=== PATIENT | male | born 1950 | race Caucasian/White ===

== ENCOUNTER 2018-10-29 04:27 | Emergency (ER) | payer OTHER ==
[~2018-10-29] VITALS: Ht 170.2 cm; Wt 68.0 kg
[~2018-10-29 04:27] MED LIST: ALBU3IS INH; ALBU90OI61 INH; ALPR.5 PO; AMOX500 PO; AZIT500 PO; Ativan0.5 MG PO; COLCHICINE0.6 MG PO; Crutch1 EACH MISC; DOCU100 PO; HYDACE10B PO; METO50 PO; PRED10 PO; Veetids 500500 MG PO; Ventolin/Prove6.7 GM INH
== END 2018-10-29 05:42 | disposition home or self-care (01) ==
LOC: ER 04:27
DX: J44.9 Chronic obstructive pulmonary disease, unspecified (principal); Z79.899 Other long term (current) drug therapy; I10 Essential (primary) hypertension
CPT/HCPCS: 94640; 99283-25

== ENCOUNTER 2019-01-06 20:58 | Day surgery (SDC) | payer OTHER ==
[~2019-01-06] VITALS: Ht 175.3 cm; Wt 63.5 kg
[2019-01-06] MEDS ORDERED: IBUP600 PO (21:30)
[2019-01-06] MEDS ORDERED: Pepcid20 MG PO (23:10)
--- NOTE | 2019-01-06 23:42 | NUR ---
TO ER TO GET PATIENT THEN BROUGTH PATIENT TO [facility] AND ADMISSION STARTED
--- NOTE | 2019-01-06 23:52 | NUR ---
01/06/19 2352 Amadou Govea PATIENT DETERMINED TO BE ASA APPROPRIATE FOR PROPOFOL SEDATION PRIOR TO START OF PROCEDURE BY DR. Estelle Fajardo Placed3-LEAD EKG REVIEWED WITH PHYSICIAN PRIOR TO START OF PROCEDURE.Patient to ENDO 1History, Chart, Medications and Allergies reviewed before start of procedure.LUNGS CLEAR T/O TO AUSCULTATION.MONITOR INTACT WITH CONTINUOUS PULSE OXIMETRY AND INTERMITTENT BP.O2 VIA N/C INTACT THROUGHOUT SEDATION/PROCEDURE.
--- NOTE | 2019-01-07 01:42 | NUR ---
MULTIPLE CALLS MADE TO ER TO TALK WITH TIAN ANDERSON WHO HAD PATIENT PRIOR TO PROCEDURE. SHE STATES SHE WILL WORK ON GETTING HIM A RIDE HOME ONCE HE IS AWAKE ENOUGH TO BE DOWN IN THE ER LOBBY. AFTER SOME TIME PATIENT AWAKE AND CONVERSING GIVING STAFF NUMBERS TO CALL FOR RIDE NUMBERS SHARED WITH JUSTIN OVERTON. PATIENT DRESSED AND TAKEN TO ER LOBBY AFTER GOING OVER DISCHARGE INSTRUCTIONS AND REMOVING IV.
== END 2019-01-07 01:42 | disposition home or self-care (01) ==
LOC: ER 20:58 → ORSCMMR 23:38
PROVIDERS: Student in an Organized Health Care Education/Training Program
PROC: 0DB98ZX Excision of Duodenum, Via Natural or Artificial Opening Endoscopic, Diagnostic (ICD-10-PCS; principal; 2019-01-06 23:45)
DX: R13.14 Dysphagia, pharyngoesophageal phase (principal); K21.9 Gastro-esophageal reflux disease without esophagitis; K29.80 Duodenitis without bleeding; K22.2 Esophageal obstruction; T18.128A Food in esophagus causing other injury, initial encounter; J44.9 Chronic obstructive pulmonary disease, unspecified; F41.9 Anxiety disorder, unspecified; Z79.899 Other long term (current) drug therapy
CPT/HCPCS: 36415; 88305; 88312; 96374; 99284-25; J1610; J2060; J2704; J7120

== ENCOUNTER 2019-03-15 01:00 | Emergency (ER) | payer OTHER ==
[~2019-03-15 01:00] MED LIST changes: +IBUP600 PO; +Pepcid20 MG PO
[2019-03-15 13:15] LABS: Calcium, Ionized (POC) 1.16 mmol/L (1.10-1.46); Chloride (POC) 103 mmol/L (98-108); Creatinine (POC) 1.3 mg/dL (0.8-1.3); Glucose (ISTAT POC) 110 mg/dL (70-99); Hemoglobin (POC) 11.6 g/dL (13.5-17.5); Potassium (POC) 3.2 mmol/L (3.5-5.5); Sodium (POC) 141 mmol/L (135-148); Total CO2 (POC) 25 mmol/L (21-32)
== END 2019-03-15 10:45 | disposition home or self-care (01) ==
LOC: ER 01:00
PROVIDERS: Emergency Medicine
DX: F10.129 Alcohol abuse with intoxication, unspecified (principal)
CPT/HCPCS: 80047; 85014; 96360; 99284; J7030

== ENCOUNTER 2019-05-21 22:13 | Emergency (ER) | payer OTHER ==
[~2019-05-21] VITALS: Ht 175.3 cm; Wt 64.4 kg
== END 2019-05-22 01:32 | disposition home or self-care (01) ==
LOC: ER 22:13
DX: S00.31XA Abrasion of nose, initial encounter (principal); S60.512A Abrasion of left hand, initial encounter; F10.129 Alcohol abuse with intoxication, unspecified; J44.9 Chronic obstructive pulmonary disease, unspecified; F41.9 Anxiety disorder, unspecified; Y04.8XXA Assault by other bodily force, initial encounter; Y09 Assault by unspecified means
CPT/HCPCS: 99283

== ENCOUNTER 2019-09-17 18:21 | Inpatient (IN) | payer OTHER ==
[~2019-09-17] VITALS: Ht 170.2 cm; Wt 66.5 kg
[2019-09-17 19:32] LABS: BASOPHILS ABSOLUTE AUTO 0.02 K/mm3 (0.00-0.23); BASOPHILS PERCENT AUTO 0 % (0-2); EOSINOPHILS PERCENT AUTO 0 % (0-6); Hematocrit 38.2 % (37.0-53.0); IMMATURE GRAN ABSOLUTE AUTO 0.08 K/mm3 (0.00-0.10); IMMATURE GRAN PERCENT AUTO 1 % (0-1); LYMPHOCYTES PERCENT AUTO 6 % (21-46); MONOCYTES ABSOLUTE AUTO 1.85 K/mm3 (0.16-1.47); MONOCYTES PERCENT AUTO 14 % (4-13); Mean Corpuscular Volume 85 fL (80-100); Mean Platelet Volume 8.6 fL (9.1-12.4); NEUTROPHILS ABSOLUTE AUTO 10.42 K/mm3 (1.96-9.15); NEUTROPHILS PERCENT AUTO 79 % (41-73); Platelet Count 387 K/mm3 (150-400); RDW Coefficient Variation 11.9 % (11.7-14.2); RDW Standard Deviation 36.7 fL (35.1-46.3); Red Blood Cell Count 4.49 M/mm3 (4.30-5.90); White Blood Cell Count 13.17 K/mm3 (4.00-11.30)
[2019-09-17 19:49] LABS: Alanine Aminotransfer (ALT/SGP 24 U/L (12-78); Albumin, Blood 3.4 g/dL (3.4-5.0); Albumin/Globulin Ratio 0.8 (0.8-1.8); Alk Phos 176 U/L (50-136); Anion Gap 10 mmol/L (6-16); Aspartate Aminotrans (AST/SGOT 22 U/L (12-37); Blood Urea Nitrogen 6 mg/dL (8-24); CO2, Blood 26 mmol/L (21-32); Calcium, Blood 8.8 mg/dL (8.5-10.1); Chloride, Blood 96 mmol/L (98-108); Creatinine, Blood 0.86 mg/dL (0.60-1.20); Globulin, Blood 4.4 g/dL (2.2-4.0); Glomerular Filtration Rate >60 (60-); Glucose, Blood 160 mg/dL (70-99); Potassium, Blood 2.6 mmol/L (3.5-5.5); Sodium, Blood 132 mmol/L (136-145); Total Protein, Blood 7.8 g/dL (6.4-8.2)
--- NOTE | 2019-09-18 00:03 | NUR ---
PT ARRIVED VIA STRETCHED AND SCOOTED SELF OVER TO BED; A&O; C/O L FOOT PAIN; PT STATES HE USED TO RECE[facility], BUT HAS NOT FOLLOWED UP FOR A YEAR; STATES HE USED TO TAKE BP MEDICATION; PT STATES HE HAS HX OF ANXIETY; PROVIDER NOTIFIED OF LACTIC OF 2.8; PT RECEIVED 1L NS IN ER; 1L NS W/ KCL TO BE GIVEN; PT HAS TEMP OF 100.0; O2 SATS >93 ON RA; SINUS TACH NOTED ON TELE W/ HR 105-118; PT STATES HE CANNOT STAND AND PREFERS URINAL IN BED; STATES NO BM FOR A FEW DAYS; SNACKS BROUGHT TO PT; FENTANYL FOR 9 OF 10 PAIN PER EMAR; 650 MG TYLENOL ADMINISTERED FOR FEVER; EDUCATED ON USE OF CALL LIGHT; ORIENTED TO UNIT/ROOM; PT CURRENTLY SLEEPING; CALL LIGHT IN REACH; BED IN LOWEST POSITION;
[2019-09-18 01:39] LABS: Anion Gap 10 mmol/L (6-16); Blood Urea Nitrogen 6 mg/dL (8-24); Bun/Creatinine Ratio 6.4 (12.0-20.0); CO2, Blood 26 mmol/L (21-32); Calcium, Blood 8.1 mg/dL (8.5-10.1); Chloride, Blood 100 mmol/L (98-108); Creatinine, Blood 0.94 mg/dL (0.60-1.20); Glomerular Filtration Rate >60 (60-); Glucose, Blood 158 mg/dL (70-99); Potassium, Blood 2.8 mmol/L (3.5-5.5); Sodium, Blood 136 mmol/L (136-145)
[2019-09-18 01:42] LABS: BASOPHILS ABSOLUTE AUTO 0.05 K/mm3 (0.00-0.23); BASOPHILS PERCENT AUTO 1 % (0-2); EOSINOPHILS ABSOLUTE AUTO 0.01 K/mm3 (0.00-0.68); EOSINOPHILS PERCENT AUTO 0 % (0-6); Hematocrit 34.1 % (37.0-53.0); Hemoglobin 11.4 g/dL (13.5-17.5); IMMATURE GRAN ABSOLUTE AUTO 0.08 K/mm3 (0.00-0.10); IMMATURE GRAN PERCENT AUTO 1 % (0-1); LYMPHOCYTES ABSOLUTE AUTO 1.21 K/mm3 (0.84-5.20); LYMPHOCYTES PERCENT AUTO 12 % (21-46); MONOCYTES ABSOLUTE AUTO 1.71 K/mm3 (0.16-1.47); MONOCYTES PERCENT AUTO 16 % (4-13); Mean Corpuscular HGB 28.7 pg (26.0-34.0); Mean Corpuscular HGB Conc 33.4 g/dL (31.5-36.5); Mean Corpuscular Volume 86 fL (80-100); Mean Platelet Volume 8.7 fL (9.1-12.4); NEUTROPHILS ABSOLUTE AUTO 7.43 K/mm3 (1.96-9.15); NEUTROPHILS PERCENT AUTO 71 % (41-73); Platelet Count 327 K/mm3 (150-400); RDW Standard Deviation 37.9 fL (35.1-46.3); Red Blood Cell Count 3.97 M/mm3 (4.30-5.90); White Blood Cell Count 10.49 K/mm3 (4.00-11.30)
--- NOTE | 2019-09-18 02:02 | NUR ---
UPDATE PROVIDER NOTIFIED OF LACTIC ACID 3.6; NEW ORDER GIVEN FOR 1L LR 500ML/HR X1, THEN RESUME NS W/KCL
--- NOTE | 2019-09-18 07:00 | NUR ---
ASSUMED CARE AT THIS TIME. RESTINGIN BED SUPINE. A/A/OX4. KCL INFUSING AT THIS TIME. REDNESS AND WARMTH TO LEFT FOOT. PEDAL PULSE PALPABLE. REDNESS LINE MARKED BY ED PRIOR TO ADMIT. DOES NOT EXTEND PAST LINE THIS AM. WILL CONTINUE TO MONITOR.
[2019-09-18 11:28] LABS: U Amphetamine Screen DETECTED; U Barbituate Screen Not Detected; U Benzodiazapine Screen Not Detected; U Buprenorphine Screen Not Detected; U Cannabinoids Screen Not Detected; U Cocaine Screen Not Detected; U Methadone Screen Not Detected; U Methamphetamine Screen DETECTED; U Opiates Screen Not Detected; U Oxycodone Screen Not Detected; U Phencyclidine Screen Not Detected; U Propoxyphene Screen Not Detected
--- NOTE | 2019-09-18 12:00 | NUR ---
REPORT TO TIAN BRANCH TO ASSUME CARE ON MEDICAL FLOOR.
--- NOTE | 2019-09-18 13:06 | NUR ---
PT TRANSFERED. PT TRANSFERED AND RESTING IN BED. ORIENTED TO ROOM. CALL LIGHT IN REACH.
--- NOTE | 2019-09-18 17:04 | NUR ---
SHIFT SUMMARY PT NAPPED MOSTLY SINCE TRANSFERED. NO ACUTE CHANGES IN ASSESSMENT AT THIS TIME. VSS. PT SEEN BY ORTHO THIS SHIFT. NO NEW ORDERS. WILL CONTINUE TO MONITOR UNTIL TURNOVER IS COMPLETE.
--- NOTE | 2019-09-19 04:27 | NUR ---
SUMMARY PT HAD SOME DISCOMFORT AND TX PER EMAR W/ RELIEF. PT HAS SLEPT T/O SHIFT. PT CURRENTLY SLEEPING AND BREATHING EASY. CALL LIGHT IN REACH.
[2019-09-19 04:35] LABS: Anion Gap 6 mmol/L (6-16); Blood Urea Nitrogen 14 mg/dL (8-24); Bun/Creatinine Ratio 14.9 (12.0-20.0); CO2, Blood 25 mmol/L (21-32); Calcium, Blood 7.9 mg/dL (8.5-10.1); Chloride, Blood 107 mmol/L (98-108); Creatinine, Blood 0.94 mg/dL (0.60-1.20); Glomerular Filtration Rate >60 (60-); Glucose, Blood 86 mg/dL (70-99); Sodium, Blood 138 mmol/L (136-145)
[2019-09-19 09:40] LABS: International Normalized Ratio 1.04; Prothrombin Time Results 11.1 Sec (9.7-11.5)
[2019-09-19 15:23] LABS: WBC Count, Synovial Fluid 825 /mm3 (0-180)
[2019-09-19 15:32] LABS: Body Fluid Crystals NEG (NEGATIVE)
[2019-09-19 15:49] LABS: Lymphs, Synovial Fluid 3 % (0-15); Monocytes/Macrophages, Synovia 4 % (0-65); Neutrophils, Synovial Fluid 93 % (0-24)
[2019-09-19 16:19] LABS: Appearance, Synovial Fluid Hazy (Clear); Color, Synovial Fluid Colorless (None-P Yel); RBC Count, Synovial Fluid 538 /mm3 (0-0)
--- NOTE | 2019-09-19 17:34 | NUR ---
SHIFT SUMMARY PT HAD ECHO, CAROTID DUPLEX, AND MRI OF HEAD COMPLETED THIS SHIFT. PT NAPPED OFF AND ON THROUGHOUT SHIFT. ARACELY CALLED PER REQUEST TO SEE PT TODAY. NO NEUROLOGIC PROBLEMS T/O SHIFT. PT IND IN ROOM. NO ACUTE CHANGES IN ASSESSMENT AT THIS TIME. VSS. WILL CONTINUE TO MONITOR UNTIL TURNOVER IS COMPLETE.
--- NOTE | 2019-09-19 17:37 | NUR ---
SHIFT SUMMARY PT HAD ASPIRATION OF L ANKLE JOINT COMPLETED THIS SHIFT. NO OTHER ACUTE CHANGES IN ASSESSMENT AT THIS TIME. PT MEDICATED FOR PAIN ONCE THIS SHIFT. VSS. WILL CONTINUE TO MONITOR UNTIL TURNOVER IS COMPLETE.
[2019-09-20 04:34] LABS: BASOPHILS ABSOLUTE AUTO 0.03 K/mm3 (0.00-0.23); BASOPHILS PERCENT AUTO 1 % (0-2); EOSINOPHILS ABSOLUTE AUTO 0.24 K/mm3 (0.00-0.68); EOSINOPHILS PERCENT AUTO 4 % (0-6); Hematocrit 34.5 % (37.0-53.0); Hemoglobin 11.1 g/dL (13.5-17.5); IMMATURE GRAN ABSOLUTE AUTO 0.03 K/mm3 (0.00-0.10); IMMATURE GRAN PERCENT AUTO 1 % (0-1); LYMPHOCYTES ABSOLUTE AUTO 1.05 K/mm3 (0.84-5.20); LYMPHOCYTES PERCENT AUTO 18 % (21-46); MONOCYTES ABSOLUTE AUTO 0.56 K/mm3 (0.16-1.47); MONOCYTES PERCENT AUTO 10 % (4-13); Mean Corpuscular HGB 28.1 pg (26.0-34.0); Mean Corpuscular HGB Conc 32.2 g/dL (31.5-36.5); Mean Corpuscular Volume 87 fL (80-100); Mean Platelet Volume 8.8 fL (9.1-12.4); NEUTROPHILS ABSOLUTE AUTO 3.91 K/mm3 (1.96-9.15); NEUTROPHILS PERCENT AUTO 67 % (41-73); Platelet Count 333 K/mm3 (150-400); RDW Coefficient Variation 11.9 % (11.7-14.2); RDW Standard Deviation 38.3 fL (35.1-46.3); Red Blood Cell Count 3.95 M/mm3 (4.30-5.90); White Blood Cell Count 5.82 K/mm3 (4.00-11.30)
[2019-09-20 04:57] LABS: Anion Gap 6 mmol/L (6-16); Blood Urea Nitrogen 17 mg/dL (8-24); Bun/Creatinine Ratio 16.8 (12.0-20.0); CO2, Blood 27 mmol/L (21-32); Calcium, Blood 8.7 mg/dL (8.5-10.1); Chloride, Blood 104 mmol/L (98-108); Creatinine, Blood 1.01 mg/dL (0.60-1.20); Glomerular Filtration Rate >60 (60-); Glucose, Blood 95 mg/dL (70-99); Potassium, Blood 4.2 mmol/L (3.5-5.5); Sodium, Blood 137 mmol/L (136-145)
--- NOTE | 2019-09-20 05:07 | NUR ---
SHIFT SUMMARY PT HAS HAD NO ACUTE CHANGES THIS SHIFT, MEDICATED 1X FOR PAIN, NO OTHER C/O ANY KIND, CIWA'S 1-2 THIS SHIFT, PT SLEPT T/O NIGHT, SLEEPING AT THIS TIME, CALL LIGHT IN REACH, WILL CONT TO MONITOR UNTIL REPORT GIVEN TO DAY RN.
--- NOTE | 2019-09-20 12:31 | NUR ---
Patient is lying in bed and alert. Patient shares about his medical issues, about his homelessness, about blowing all his inheritance and his thoughts on God and reliegion. Patient explains about his fears surrounding the Covid-19 pandemic and his concerns for his own life. I listen empathically, normalize patient experience and provide spiritual guidance and prayer. Patient responds well and displays evidence of improved peace. I will continue to remain available to patient and family.
--- NOTE | 2019-09-20 18:39 | NUR ---
SHIFT SUMMARY PT INDEPENDENT IN ROOM. MEDICATED FOR L FOOT/ANKLE DISCOMFORT. HAS HAD MINIMAL CIWA SCORES. DOES HAVE A TENDANCY TO CODY. DR. JIMENEZ IN TO SEE PT. L ANKLE DOES APPEAR SWOLLEN BUT FOOT APPEARS TO BE LESS SWOLLEN.
--- NOTE | 2019-09-21 00:34 | NUR ---
unable to start IV antibiotics as IV no longer functional. Patient very anxious and does not want the old dressing removed as it will "pull on his skin and tear it." Couls not convince patient otherwise. Kaylene has allowed me to wrap opposite arm with a warm blanket in an attempt to restart one on other arm. Discussed the importance of him getting his antibiotics.
[2019-09-21 04:29] LABS: BASOPHILS ABSOLUTE AUTO 0.05 K/mm3 (0.00-0.23); BASOPHILS PERCENT AUTO 1 % (0-2); EOSINOPHILS ABSOLUTE AUTO 0.32 K/mm3 (0.00-0.68); EOSINOPHILS PERCENT AUTO 7 % (0-6); Hematocrit 33.6 % (37.0-53.0); Hemoglobin 10.8 g/dL (13.5-17.5); IMMATURE GRAN ABSOLUTE AUTO 0.02 K/mm3 (0.00-0.10); IMMATURE GRAN PERCENT AUTO 0 % (0-1); LYMPHOCYTES ABSOLUTE AUTO 1.01 K/mm3 (0.84-5.20); LYMPHOCYTES PERCENT AUTO 22 % (21-46); MONOCYTES ABSOLUTE AUTO 0.51 K/mm3 (0.16-1.47); MONOCYTES PERCENT AUTO 11 % (4-13); Mean Corpuscular HGB 28.1 pg (26.0-34.0); Mean Corpuscular HGB Conc 32.1 g/dL (31.5-36.5); Mean Corpuscular Volume 88 fL (80-100); Mean Platelet Volume 8.8 fL (9.1-12.4); NEUTROPHILS ABSOLUTE AUTO 2.62 K/mm3 (1.96-9.15); NEUTROPHILS PERCENT AUTO 58 % (41-73); Platelet Count 319 K/mm3 (150-400); RDW Coefficient Variation 11.9 % (11.7-14.2); RDW Standard Deviation 38.4 fL (35.1-46.3); Red Blood Cell Count 3.84 M/mm3 (4.30-5.90); White Blood Cell Count 4.53 K/mm3 (4.00-11.30)
--- NOTE | 2019-09-21 14:35 | NUR ---
PAtient is lying in bed and alert. Because therapeutic alliance is already established, patient easily shares about his personal struggles and fears. Patient talks at length about his parents and family unit complications, about his mistakes and regrets and about his concerns about and dying. I listen empathically, hear confession and provide grief/emotional support and prayer. Patient responds well and shows sign of catharsis and reduced fear. I will continue to remain available to patient and family.
--- NOTE | 2019-09-21 18:41 | NUR ---
SHIFT SUMMARY INDEPENDENT IN ROOM. REPORTS PAIN TO L ANKLE IMPROVED FROM YESTERDAY. SWELLING LESS THAN YESTERDAY WELL. AMBULATED IN HALLWAY USING FWW WITH P.T. AND WENT AROUND THE LOOP. LIMPING ON LLE. CONCERNED ABOUT LEAVING AND NOT HAVING SOME SORT OF ASSISTIVE DEVICE TO USE. TENTATIVE DISCHARGE TO [facility] TOMORROW AND PT AWARE.
--- NOTE | 2019-09-21 18:55 | NUR ---
ASSUMED CARE RECEIVED REPORT FROM TIAN DEXTER. ASSUMED CARE OF PT. RESTING COMFORTABLY AT THIS TIME, NO S/S ACUTE DISTRESS NOTED. DENIES NEEDS AT THIS TIME. CALL LIGHT, POSSESSIONS IN REACH, WILL CONTINUE TO MONITOR.
[2019-09-21 23:28] LABS: Vancomycin, Trough 16.1 ug/mL (5.0-10.0)
--- NOTE | 2019-09-22 04:29 | NUR ---
SHIFT SUMMARY PT HAS HAD AN UNEVENTFUL NIGHT. SLEPT ON AND OFF T/O. VS STABLE, LT FOOT APPEARS TO BE HEALING WELL. PT EXPRESSED CONCERN REGARDING D/C DURING THESE TIMES OF UNCERTAINTY, USED THERAPEUTIC COMMUNICATION AND ACTIVE LISTENING, ADDRESSING PT CONCERNS. PT REMAINS ASLEEP AT THIS TIME, DENIES ANY NEEDS. WAS MONITORED EVERY 1-2 HOURS WITH NEEDS MET. CALL LIGHT, POSSESSIONS IN REACH. WILL CONTINUE TO MONITOR UNTIL DAY RN ASSUMES CARE.
[2019-09-22] MEDS ORDERED: Acetaminophen325 M1 PO (14:35)
[2019-09-22] MEDS ORDERED: B-1100 M1 PO (14:35)
[2019-09-22] MEDS ORDERED: CEPH500 PO (14:36)
[2019-09-22] MEDS ORDERED: Bactrim Ds Tab1 EACH PO (14:37)
--- NOTE | 2019-09-22 16:55 | NUR ---
PT AO AND COOPERATIVE OF CARE. PT ABLE TO CALL APPROPRIATELY. PT DISCHARGED AT 1215. TAXI WAS ARRANGED TO TAKE PT TO [facility] FOR WALKER. PT STATED HE WOULD RIDE THE BUS FROM THERE TO THE [facility]. ALL PAPER WORK WAS REVIEWED AND EDUCATIONAL MATERIAL WAS SENT WITH PT. PT HAD RESOURCE PACKET WITH HIM FROM [facility]. NO DISTRESS NOTED. KRYSTAL MARIEMirza WAS CALLED AND PICKED UP PT AT 1515 THIS PHONE CIRCUIT OPERATOR ESCORTED PT TO [facility] FOR PICKUP.
== END 2019-09-22 15:01 | disposition home or self-care (01) | DRG 872 ==
LOC: ER 18:21 → MEDS 21:56 → PCU 21:56 → MEDS 09-18 12:33 → ENPENDDIS 09-22 10:00 → MEDS 09-22 15:01
PROVIDERS: Emergency Medicine; Internal Medicine; Orthopaedic Surgery; ADMIT Family Medicine
PROC: 0S9 Lower Joints, Drainage (ICD-10-PCS; principal; 2019-09-19)
DX: A41.9 Sepsis, unspecified organism (principal); L03.116 Cellulitis of left lower limb; E87.1 Hypo-osmolality and hyponatremia; R65.20 Severe sepsis without septic shock; I10 Essential (primary) hypertension; E87.6 Hypokalemia; D64.9 Anemia, unspecified; M10.9 Gout, unspecified; F41.9 Anxiety disorder, unspecified; J44.9 Chronic obstructive pulmonary disease, unspecified; M19.90 Unspecified osteoarthritis, unspecified site; F19.10 Other psychoactive substance abuse, uncomplicated
CPT/HCPCS: 20611; 36415; 71045; 73610; 73620; 76882; 80048; 80053; 80202; 83605; 84132; 84550; 85025; 85379; 85610; 85651; 85730; 86140; 87040; 87070; 87205; 89051; 89060; 96365; 97110; 97116; 97161; 97165; 97530; 97535; 99284-25; A9270; A9270-GY; G0480; J0690; J0696; J1650; J1885; J3010; J3370; J3480; J7030; J7050; J7120

== ENCOUNTER 2019-11-05 11:48 | Emergency (ER) | payer OTHER ==
[~2019-11-05] VITALS: Ht 175.3 cm; Wt 65.8 kg
[~2019-11-05 11:48] MED LIST changes: +Acetaminophen325 M1 PO; +B-1100 M1 PO; +Bactrim Ds Tab1 EACH PO; +CEPH500 PO
[2019-11-05 15:03] LABS: BASOPHILS ABSOLUTE AUTO 0.06 K/mm3 (0.00-0.23); BASOPHILS PERCENT AUTO 1 % (0-2); EOSINOPHILS ABSOLUTE AUTO 0.27 K/mm3 (0.00-0.68); EOSINOPHILS PERCENT AUTO 4 % (0-6); Hematocrit 37.4 % (37.0-53.0); Hemoglobin 12.3 g/dL (13.5-17.5); IMMATURE GRAN ABSOLUTE AUTO 0.03 K/mm3 (0.00-0.10); IMMATURE GRAN PERCENT AUTO 1 % (0-1); LYMPHOCYTES ABSOLUTE AUTO 1.31 K/mm3 (0.84-5.20); LYMPHOCYTES PERCENT AUTO 21 % (21-46); MONOCYTES ABSOLUTE AUTO 0.55 K/mm3 (0.16-1.47); MONOCYTES PERCENT AUTO 9 % (4-13); Mean Corpuscular HGB Conc 32.9 g/dL (31.5-36.5); Mean Corpuscular Volume 85 fL (80-100); Mean Platelet Volume 9.2 fL (9.1-12.4); NEUTROPHILS ABSOLUTE AUTO 4.08 K/mm3 (1.96-9.15); NEUTROPHILS PERCENT AUTO 65 % (41-73); Platelet Count 249 K/mm3 (150-400); RDW Coefficient Variation 12.9 % (11.7-14.2); RDW Standard Deviation 39.8 fL (35.1-46.3); Red Blood Cell Count 4.39 M/mm3 (4.30-5.90)
[2019-11-05 15:22] LABS: Alanine Aminotransfer (ALT/SGP 48 U/L (12-78); Albumin, Blood 3.4 g/dL (3.4-5.0); Albumin/Globulin Ratio 0.8 (0.8-1.8); Alk Phos 160 U/L (50-136); Anion Gap 7 mmol/L (6-16); Aspartate Aminotrans (AST/SGOT 87 U/L (12-37); Bilirubin, Total 0.6 mg/dL (0.1-1.0); Blood Urea Nitrogen 12 mg/dL (8-24); Bun/Creatinine Ratio 14.1 (12.0-20.0); CO2, Blood 24 mmol/L (21-32); Calcium, Blood 8.6 mg/dL (8.5-10.1); Chloride, Blood 102 mmol/L (98-108); Creatinine, Blood 0.85 mg/dL (0.60-1.20); Globulin, Blood 4.5 g/dL (2.2-4.0); Glomerular Filtration Rate >60 (60-); Glucose, Blood 93 mg/dL (70-99); Potassium, Blood 3.4 mmol/L (3.5-5.5); Sodium, Blood 133 mmol/L (136-145); Total Protein, Blood 7.9 g/dL (6.4-8.2)
== END 2019-11-05 18:16 | disposition home or self-care (01) ==
LOC: ER 11:48
PROVIDERS: Emergency Medicine
DX: H54.3 Unqualified visual loss, both eyes (principal); I63.81 Other cerebral infarction due to occlusion or stenosis of small artery; F10.10 Alcohol abuse, uncomplicated; Z59.0 Homelessness; Z79.2 Long term (current) use of antibiotics; Z79.899 Other long term (current) drug therapy; F41.9 Anxiety disorder, unspecified; J44.9 Chronic obstructive pulmonary disease, unspecified; M10.9 Gout, unspecified; I10 Essential (primary) hypertension
CPT/HCPCS: 36415; 70450; 80053; 82947; 85025; 93005; 93010; 99284-25

== ENCOUNTER 2022-09-21 05:57 | Emergency (ER) | payer OTHER ==
[~2022-09-21] VITALS: Ht 172.7 cm; Wt 68.0 kg
[2022-09-21 06:30] VITALS: BP 156/86
[2022-09-21] MEDS ORDERED: IBUP400 PO (09:47)
== END 2022-09-21 10:12 | disposition home or self-care (01) ==
LOC: ER 05:57
DX: S09.90XA Unspecified injury of head, initial encounter (principal); S42.121A Displaced fracture of acromial process, right shoulder, initial encounter for closed fracture; S16.1XXA Strain of muscle, fascia and tendon at neck level, initial encounter; W01.10XA Fall on same level from slipping, tripping and stumbling with subsequent striking against unspecified object, initial encounter; J44.9 Chronic obstructive pulmonary disease, unspecified; M10.9 Gout, unspecified; I10 Essential (primary) hypertension; M19.90 Unspecified osteoarthritis, unspecified site; Z59.00 Homelessness unspecified
CPT/HCPCS: 70450; 72125; 73030; 96374; 99284-25; J1885